=== PATIENT | female | born 1960 | race Caucasian/White ===

== ENCOUNTER 2023-03-18 11:22 | Emergency (ER) | payer MEDICARE, MEDICAID, SELFPAY ==
[2023-03-18] VITALS (42 sets, daily range): BP systolic 116–226; BP diastolic 44–113; PULSE 58–80; RESP 11–29; TEMP 36.6; O2SAT 97–100; BMI 57.2
--- NOTE | 2023-03-18 | CT_ITS ---
The [address] [address] Patient Name: JOSE HERNANDEZ MRN: [facility]:[id number] date: 1960 Sex: F Assigned Patient Location: ED.MAIN Current Patient Location: ED.MAIN Accession/Order Number: [id number] Exam Date: 03/18/2023 11:30 Report Date: 03/18/2023 12:01 At the request of: BRIDGET THAKKAR Procedure: CT stroke head/brain wo con EXAM: CT stroke head/brain wo con HISTORY: CONFUSION COMPARISON: None. TECHNIQUE: Axial noncontrast CT imaging of the head was performed with coronal and sagittal reformats. This CT exam was performed using one or more of the following dose reduction techniques: Automated exposure control, adjustment of the MA and/or kV according to patient size, or use of iterative reconstruction technique. FINDINGS: Calvarium/skull base: No evidence of acute fracture or destructive lesion. Mastoids and middle ears demonstrate no substantial mucosal disease. Paranasal sinuses: No air fluid levels. Brain: No acute intracranial hemorrhage. Asymmetric hypoattenuation involving the inferior right cerebellum. No mass lesion or mass effect. No hydrocephalus. CT/CT stroke head/brain wo con IMPRESSION: Age-indeterminate asymmetric hypoattenuation involving the inferior right cerebellum. Imaging appearance is concerning for acute ischemia. Recommend MR brain for further evaluation. Notification of Results Provider/Agent notified: Dr. Lindsey Thakkar Time/Date notified: 03/18/2023 9:54 AM MDT Notifying Staff: Dr. Mccord Electronically authenticated by: ANGIE MCCORD Date: 03/18/2023 12:01
--- NOTE | 2023-03-18 11:51 | ECG_ITS ---
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
--- NOTE | 2023-03-18 11:52 | XR_ITS ---
The [address] [address] Patient Name: JOSE HERNANDEZ MRN: [id number] date: 1960 Sex: F Assigned Patient Location: ER Current Patient Location: ER Accession/Order Number: [id number] Exam Date: 03/18/2023 13:00 Report Date: 03/18/2023 13:48 At the request of: BRIDGET THAKKAR Procedure: XR chest 1V XR chest 1V CLINICAL: ams COMPARISON: No prior studies are available. TECHNIQUE: Single AP view of the chest. FINDINGS: Heart size is upper normal limits for technique. No regional airspace consolidation, effusion or evidence of pneumothorax. Osseous structures appear grossly intact. XR/XR chest 1V IMPRESSION: No acute cardiac or pulmonary findings. Electronically authenticated by: RIKKI BERNARDO Date: 03/18/2023 13:48
[2023-03-18] MEDS: 0.9 % SODIUM CHLORIDE 1,000 ML 1000 ML IV (12:19)
[2023-03-18 12:24] LABS: Basophils Absolute Auto 0.1 10^3/uL (0.0-0.1); Basophils Percent Auto 0.7 % (0.2-2.0); Eosinophils Absolute Auto 0.2 10^3/uL (0.0-0.7); Eosinophils Percent Auto 2.6 % (0.9-7.0); Hematocrit 35.9 % (36.0-48.0); Immature Granulocytes Abs Auto 0.02 10^3/uL (0.00-0.03); Immature Granulocytes Pct Auto 0.2 % (0.0-0.5); Lymphocytes Absolute Auto 1.1 10^3/uL (1.2-3.8); Lymphocytes Percent Auto 13.8 % (20.5-60.0); Mean Corpuscular HGB Conc 30.6 g/dL (29.9-35.2); Mean Corpuscular Hemoglobin 27.4 pg (26.7-34.0); Mean Corpuscular Volume 89.5 fL (81.0-99.0); Monocytes Absolute Auto 0.8 10^3/uL (0.3-0.8); Monocytes Percent Auto 10.3 % (1.7-12.0); Neutrophils Absolute Auto 5.8 10^3/uL (1.4-6.5); Neutrophils Percent Auto 72.4 % (43.0-75.0); Platelet Count 494 10^3/uL (150-450); Red Blood Count 4.01 10^6/uL (4.20-5.40)
[2023-03-18 12:25] LABS: Bilirubin Urine NEGATIVE (NEGATIVE); Blood Urine NEGATIVE (NEGATIVE); Clarity Urine CLEAR (CLEAR); Color Urine YELLOW (YELLOW); Glucose Urine UA NEGATIVE (NEGATIVE); Ketones Urine NEGATIVE (NEGATIVE); Leukocyte Esterase Urine NEGATIVE (NEGATIVE); Nitrite Urine NEGATIVE (NEGATIVE); Protein Urine NEGATIVE (NEG/TRACE); Urobilinogen Urine 0.2 EU/dL (0.2-1.0)
[2023-03-18 12:27] LABS: Urine Microscopic Indicated NO
[2023-03-18 12:28] LABS: Ethanol <3 mg/dL; Magnesium 2.4 mg/dL (1.8-2.4)
[2023-03-18 12:30] LABS: INR 2.45; Prothrombin Time 24.7 sec (9.0-11.6)
[2023-03-18 12:36] LABS: Lactate/Lactic Acid 1.4 mmol/L (0.4-2.0)
[2023-03-18 12:43] LABS: Alanine Aminotransferase 22 U/L (14-59); Albumin Globulin Ratio 0.9; Albumin Level 3.3 g/dL (3.4-5.0); Alkaline Phosphatase 96 U/L (46-116); Aspartate Amino Transferase 25 U/L (15-37); BUN Creatinine Ratio 16.3; Bilirubin Total 0.4 mg/dL (0.2-1.0); Calcium 8.1 mg/dL (8.5-10.1); Carbon Dioxide 28.6 mmol/L (21.0-32.0); Chloride 106 mmol/L (98-107); Estimated GFR (African America >60 (>=60); Estimated GFR (Non-African Ame >60 (>=60); Globulin 3.6 g/dL; Glucose 108 mg/dL (74-106); Potassium 4.6 mmol/L (3.5-5.1); Sodium 141 mmol/L (136-145); Total Protein 6.9 g/dL (6.4-8.2); Troponin I High Sensitivity 6.8 pg/mL (4.0-51.3)
--- NOTE | 2023-03-18 14:34 | CT_ITS ---
[address] [address] Patient Name: JOSE HERNANDEZ MRN: [id number] date: 1960 Sex: F Assigned Patient Location: Current Patient Location: Accession/Order Number: [id number] Exam Date: 03/18/2023 15:06 Report Date: 03/18/2023 18:15 At the request of: BRIDGET THAKKAR Procedure: CT angio head EXAMINATION: CT angio head, CT angio neck HISTORY: stroke like symptoms confusion. COMPARISON: Head CT 03/18/2023. TECHNIQUE: CTA images through the head and neck with intravenous contrast with coronal and sagittal maximum intensity projection images, and 3-dimensional volume rendered images. Dose reduction techniques were achieved by using: automated exposure control and/or adjustment of mA and /or kV according to patient size and/or use of iterative reconstruction technique. FINDINGS: Marked degradation of image quality from increased patient habitus and beam hardening artifact. CTA NECK: No flow limiting stenosis in the origins of the great vessels suspected, within constraints of exam. No stenosis of the carotid arteries by NASCET criteria. Vertebral arteries are patent. No flow limiting stenosis suspected. CTA HEAD: Degradation of image quality from venous contamination. Moderate atherosclerotic calcification and stenosis at the cavernous internal carotid arteries. Within constraints of exam, no flow limiting stenosis or occlusion suspected in the major intracranial arteries. Evaluation for aneurysm is constrained by venous contamination, though no large aneurysm suspected. No airspace infiltrates in the included lung apices. CT/CT angio head IMPRESSION: 1. There is significant degradation of image quality from increased patient habitus and significant venous contamination. 2. Within constraints of exam, there appears to be flow in all major intracranial arteries without flow-limiting stenosis or occlusion. 3. There is no stenosis of the carotid arteries by NASCET criteria. The vertebral arteries are patent, without flow-limiting stenosis suspected. Electronically authenticated by: ANUP CARDENAS Date: 03/18/2023 18:15
--- NOTE | 2023-03-18 14:34 | CT_ITS ---
[address] [address] Patient Name: JOSE HERNANDEZ MRN: [id number] date: 1960 Sex: F Assigned Patient Location: Current Patient Location: Accession/Order Number: [id number] Exam Date: 03/18/2023 15:06 Report Date: 03/18/2023 18:15 At the request of: BRIDGET THAKKAR Procedure: CT angio neck EXAMINATION: CT angio head, CT angio neck HISTORY: stroke like symptoms confusion. COMPARISON: Head CT 03/18/2023. TECHNIQUE: CTA images through the head and neck with intravenous contrast with coronal and sagittal maximum intensity projection images, and 3-dimensional volume rendered images. Dose reduction techniques were achieved by using: automated exposure control and/or adjustment of mA and /or kV according to patient size and/or use of iterative reconstruction technique. FINDINGS: Marked degradation of image quality from increased patient habitus and beam hardening artifact. CTA NECK: No flow limiting stenosis in the origins of the great vessels suspected, within constraints of exam. No stenosis of the carotid arteries by NASCET criteria. Vertebral arteries are patent. No flow limiting stenosis suspected. CTA HEAD: Degradation of image quality from venous contamination. Moderate atherosclerotic calcification and stenosis at the cavernous internal carotid arteries. Within constraints of exam, no flow limiting stenosis or occlusion suspected in the major intracranial arteries. Evaluation for aneurysm is constrained by venous contamination, though no large aneurysm suspected. No airspace infiltrates in the included lung apices. CT/CT angio neck IMPRESSION: 1. There is significant degradation of image quality from increased patient habitus and significant venous contamination. 2. Within constraints of exam, there appears to be flow in all major intracranial arteries without flow-limiting stenosis or occlusion. 3. There is no stenosis of the carotid arteries by NASCET criteria. The vertebral arteries are patent, without flow-limiting stenosis suspected. Electronically authenticated by: ANUP CARDENAS Date: 03/18/2023 18:15
--- NOTE | 2023-03-18 17:03 | ED_ITS ---
HPI - Neuro Symptoms/Deficit General Chief Complaint: Neuro Symptoms/Deficit Stated Complaint: CONFUSION Time Seen by Provider: 03/18/23 11:40 Mode of arrival: ambulance Limitations: no limitations and altered mental status History of Present Illness HPI Narrative: The daughter called the EMS after the patient was showing some confusion the patient herself complained of bilateral lower face numbness and tingling as well as right arm numbness and tingling mostly in the right hand as well as up in the arm She mentioned that those symptoms have been going on at least for 3 days She denies any other complaints Related Data Home Medications Medication Instructions Recorded Confirmed albuterol sulfate 90 mcg/actuation 1 puff inhalation Q4H PRN cough 03/18/2307/10 aerosol inhaler azathioprine 50 mg tablet 100 mg PO DAILY 03/18/23 03/18/23 belimumab 200 mg/mL subcutaneous 200 mg subcut .weekly 03/18/23 03/18/23 auto-injector (Benlysta) cholecalciferol (vitamin D3) 125 5,000 unit PO .weekly 03/18/23 03/18/23 mcg (5,000 unit) tablet (Vitamin D3) duloxetine 60 mg capsule,delayed 120 mg PO DAILY 03/18/23 03/18/23 release hydroxychloroquine 200 mg tablet 200 mg PO BID 03/18/23 03/18/23 metoprolol tartrate 50 mg tablet 50 mg PO Q12H 03/18/23 03/18/23 nystatin 100,000 unit/gram topical topical 03/18/23 ointment pantoprazole 40 mg tablet,delayed mg PO 03/18/23 release pregabalin 50 mg capsule 50 mg PO Q12H 03/18/23 03/18/23 warfarin 5 mg tablet mg 03/18/23 Allergies Allergy/AdvReac Type Severity Reaction Status Date / Time No Known Drug Allergies Allergy Verified 03/18/23 12:00 Review of Systems ROS Status of ROS 10 or more systems reviewed and unremarkable except as noted in history and below [facility] Social History Smoking status: Never smoker Exam Narrative Exam Narrative: Nurses notes and vital signs reviewed and patient is not hypoxic. General: Well-appearing and in no apparent distress. Skin: Warm, dry, no pallor noted. No rash. Head: Normocephalic, atraumatic. Neck: Supple, non-tender. Eye: Pupils are equal, round and EOMI. No scleral icterus. Ears, Nose, Mouth, and Throat: TM are clear, no nasal mucosal hypertrophy. Oral mucosa is moist, no posterior oropharynx erythema, uvula is mid-line Cardiovascular: Regular Rate and Rhythm without murmur, gallop or rub. Respiratory: No accessory muscle use or respiratory distress. Lungs are clear to auscultation, no wheezing, rales or rhonchi Chest Wall: no tenderness Back: No midline thoracic or lumbar vertebral tenderness. No CVA tenderness Musculoskeletal: normal ROM, no calf or popliteal tenderness, no lower extremity edema/swelling GI: Abdomen is soft, non-distended. Normal bowel sounds. No masses appreciated. No tenderness to palpation. No rebound, guarding, or rigidity noted. Neurological: A&O x4. No cranial nerve dysfunction observed. It was noted that the patient have some ataxia when trying to reach her index finger to the nose ,moves all extremities. Sensation intact. Psychiatric: Cooperative and interactive. Normal mood and affect. Constitutional Vital Signs, click to edit/add: Last Vital Signs Temp 98 F 03/18/23 11:34 Pulse 67 03/18/23 16:30 Resp 19 03/18/23 16:30 BP 172/79 H 03/18/23 16:30 Pulse Ox 97 03/18/23 16:30 O2 Del Method Room Air 03/18/23 11:48 Course Vital Signs Vital signs: Vital Signs Temperature 98 F 03/18/23 11:34 Pulse Rate 65 03/18/23 11:34 Respiratory Rate 20 03/18/23 11:34 Blood Pressure 161/98 H 03/18/23 11:34 Pulse Oximetry 99 03/18/23 11:34 Temperature 98 F 03/18/23 11:34 Pulse Rate 67 03/18/23 16:30 Respiratory Rate 19 03/18/23 16:30 Blood Pressure 172/79 H 03/18/23 16:30 Pulse Oximetry 97 03/18/23 16:30 Oxygen Delivery Method Room Air 03/18/23 11:48 MDM - Neuro Symptoms/Deficit MDM Narrative Medical decision making narrative: The patient EKG in the ER showing sinus rhythm with a heart rate of [address] elevation or depression NIH score with presentation was 0 and pt had no complaints and her symptoms are last known well 3 days ago CBC and chemistry showed no acute significant pathology and the CAT scan shows possibly hypoattenuation in the right cerebellum which is new [facility] and the doctor agree that the patient need further evaluation with a CT angio of the head and neck as well as possibly MRI The patient want to be transferred to her care in [facility] and I spoke with team and the patient was accepted Right now the patient will continue Coumadin according to neurology service her INR was 2.4 Lab Data Labs: Lab Results 03/18/23 03/18/23 Range/Units 11:46 12:00 WBC 8.0 (4.0-11.0) 10^3/uL RBC 4.01 L (4.20-5.40) 10^6/uL Hgb 11.0 L (12.0-16.0) g/dL Hct 35.9 L (36.0-48.0) % MCV 89.5 (81.0-99.0) fL MCH 27.4 (26.7-34.0) pg MCHC 30.6 (29.9-35.2) g/dL RDW 18.0 H (11.0-15.0) % Plt Count 494 H (150-450) 10^3/uL MPV 10.0 (9.5-13.5) fL Neut % (Auto) 72.4 (43.0-75.0) % Lymph % (Auto) 13.8 L (20.5-60.0) % [place] % (Auto) 10.3 (1.7-12.0) % Eos % (Auto) 2.6 (0.9-7.0) % Baso % (Auto) 0.7 (0.2-2.0) % Neut # (Auto) 5.8 (1.4-6.5) 10^3/uL Lymph # (Auto) 1.1 L (1.2-3.8) 10^3/uL [place] # (Auto) 0.8 (0.3-0.8) 10^3/uL Eos # (Auto) 0.2 (0.0-0.7) 10^3/uL Baso # (Auto) 0.1 (0.0-0.1) 10^3/uL Abs Immat Gran (auto) 0.02 (0.00-0.03) 10^3/uL Imm/Tot Granulo (auto) 0.2 (0.0-0.5) % PT 24.7 H (9.0-11.6) sec INR 2.45 Sodium 141 (136-145) mmol/L Potassium 4.6 (3.5-5.1) mmol/L Chloride 106 (98-107) mmol/L Carbon Dioxide 28.6 (21.0-32.0) mmol/L Anion Gap 11.0 BUN 14.0 (7.0-18.0) mg/dL Creatinine 0.86 (0.55-1.02) mg/dL Est GFR ( Amer) >60 (>=60) Est GFR (Non-Af Amer) >60 (>=60) BUN/Creatinine Ratio 16.3 Glucose 108 H (74-106) mg/dL Lactate 1.4 (0.4-2.0) mmol/L Calcium 8.1 L (8.5-10.1) mg/dL Magnesium 2.4 (1.8-2.4) mg/dL Total Bilirubin 0.4 (0.2-1.0) mg/dL AST 25 (15-37) U/L ALT 22 (14-59) U/L Alkaline Phosphatase 96 (46-116) U/L Troponin I High Sens 6.8 (4.0-51.3) pg/mL Total Protein 6.9 (6.4-8.2) g/dL Albumin 3.3 L (3.4-5.0) g/dL Globulin 3.6 g/dL Albumin/Globulin Ratio 0.9 Urine Color Yellow (YELLOW) Urine Clarity Clear (CLEAR) Urine pH 7.0 (5.0-9.0) Ur Specific [place] 1.020 (1.005-1.025) Urine Protein Negative (NEG/TRACE) mg/dL Urine Glucose (UA) Negative (NEGATIVE) mg/dL Urine Ketones Negative (NEGATIVE) mg/dL Urine Occult Blood Negative (NEGATIVE) Urine Nitrite Negative (NEGATIVE) Urine Bilirubin Negative (NEGATIVE) Urine Urobilinogen 0.2 (0.2-1.0) EU/dL Ur Leukocyte Esterase Negative (NEGATIVE) Ethanol Quant <3 mg/dL Discharge Plan Discharge Chief Complaint: Neuro Symptoms/Deficit Clinical Impression: Stroke Patient Disposition: [facility] Time of Disposition Decision: 17:06 Discharge Location: [facility] Mode of Transportation: EMS
== END 2023-03-18 17:34 | disposition short-term general hospital (02) ==
PROVIDERS: Emergency Provider Emergency Medicine
DX: I63.9 Cerebral infarction, unspecified (principal); Z79.899 Other long term (current) drug therapy; Z79.01 Long term (current) use of anticoagulants
CPT/HCPCS: 36415; 70450; 70496; 70498; 71045; 80053; 80320; 81003; 83605; 83735; 84484; 85025; 85610; 93005; 99285; Q9967